=== PATIENT | female | born 1935 | race Two or more races ===

== ENCOUNTER 2022-06-09 04:55 | Inpatient (IN) | payer OTHER, MEDICAID ==
[~2022-06-09] VITALS: Ht 165.1 cm; Wt 77.0 kg
[2022-06-09 07:00] LABS: Urine Bacteria NONE SEEN /hpf (None Seen); Urine Blood Negative /uL (Negative); Urine Specific Gravity 1.005 (1.001-1.035); Urine WBC <1 /hpf (0 - 5)
[2022-06-09 07:18] LABS: Basophils # (auto) 0.1 10 ^3/uL (0-0.2); Basophils % (auto) 0.3 % (0.0-2.0); Eosinophils # (auto) 0.1 10 ^3/uL (0-0.8); Eosinophils % (auto) 0.4 % (0.0-7.0); Hematocrit 45.4 % (36.0-46.0); Hemoglobin 15.1 g/dL (12.2-16.2); Lymphocytes # (auto) 1.4 10 ^3/uL (0.4-5.4); Lymphocytes % (auto) 7.9 % (10.0-50.0); Mean Corpuscular Hemoglobin 31.1 pg (28.0-32.0); Mean Corpuscular Hgb Conc. 33.3 g/dL (32.0-36.0); Mean Corpuscular Volume 93.4 fL (80.0-100.0); Monocytes # (auto) 0.8 10 ^3/uL (0-1.3); Monocytes % (auto) 4.5 % (0.0-12.0); Neutrophils # (auto) 15.7 10 ^3/uL (1.6-8.6); Neutrophils % (auto) 86.9 % (37.0-80.0); Red Blood Cells 4.86 10^6/uL (4.0-5.20); Red Cell Distribution Width 14.2 % (11.8-14.3); White Blood Cell 18.1 10^3/uL (4.4-10.8)
[2022-06-09 07:31] LABS: INR 0.89 (0.9-1.15); Partial Thromboplastin Time 29.2 sec (24.6-33.4)
[2022-06-09 07:33] LABS: Albumin 3.6 g/dL (3.4-5.0); Calcium 9.4 mg/dL (8.5-10.1)
[2022-06-09 07:35] LABS: BUN/Creatinine Ratio 17.1
[2022-06-09] MEDS ORDERED: POTASSIUM EFFERVESENT TAB 25 MEQ PO ONE (07:45)
[2022-06-09] MEDS ORDERED: POTASSIUM CHL 20MEQ/100ML 100 ML IV ONE (07:45)
[2022-06-09 07:47] LABS: Bilirubin, Total 0.7 mg/dL (0.2-1.0); Potassium 2.9 mmol/L (3.5-5.1); Total Protein 6.7 g/dL (6.4-8.2)
[2022-06-09] MEDS ORDERED: HYDROcodone-ACET 5/325MG TAB PO ONE (08:15)
[2022-06-09] MEDS ORDERED: ONDANSETRON HCL 4 MG/2 ML VIAL IV ONE (08:15)
[2022-06-09] MEDS ORDERED: SOD CHL 0.9%/ KCL 40MEQ 1,000 ML IV ONE (09:45)
[2022-06-09] MEDS ORDERED: ACETAMINOPHEN 325 MG TAB PO PRN (12:45)
[2022-06-09] MEDS ORDERED: LISI20TA28 PO (12:58)
[2022-06-09] MEDS ORDERED: GABA300C10 PO (12:58)
[2022-06-09] MEDS ORDERED: ATOR20TA50 PO (12:58)
[2022-06-09] MEDS: MORPHINE SULFATE INJ 2 MG/ml SYRG IV PRN ×2 (14:14→18:47)
[2022-06-09 16:45] LABS: Cholesterol 171 mg/dL (< 200)
[2022-06-09 16:48] LABS: HDL Cholesterol 70 mg/dL (40-59); LDL Cholesterol 91 mg/dL (< 100); Triglycerides 88 mg/dL (< 150)
[2022-06-09] MEDS: hydrALAZINE HCL 20 MG/ML VL IV PRN (18:07)
[2022-06-09] MEDS ORDERED: TEMAZEPAM 15 MG CAP PO PRN (18:45)
[2022-06-09] MEDS ORDERED: LISINOPRIL 20 MG TAB PO ONE (21:00)
[2022-06-09] MEDS: GABAPENTIN 300 MG CAP PO SCH (23:18)
[2022-06-10] VITALS: BP 172/83
[2022-06-10] MEDS: MORPHINE SULFATE INJ 2 MG/ml SYRG IV PRN (00:47)
[2022-06-10] MEDS: hydrALAZINE HCL 20 MG/ML VL IV PRN (01:27)
[2022-06-10] MEDS: HYDROcodone-ACET 5/325MG TAB PO PRN (04:18)
[2022-06-10 05:00] VITALS: BP 168/81
[2022-06-10 06:40] LABS: Basophils # (auto) 0.1 10 ^3/uL (0-0.2); Basophils % (auto) 0.6 % (0.0-2.0); Eosinophils # (auto) 0.1 10 ^3/uL (0-0.8); Eosinophils % (auto) 0.9 % (0.0-7.0); Hematocrit 44.3 % (36.0-46.0); Hemoglobin 14.7 g/dL (12.2-16.2); Lymphocytes # (auto) 1.3 10 ^3/uL (0.4-5.4); Lymphocytes % (auto) 9.9 % (10.0-50.0); Mean Corpuscular Hgb Conc. 33.3 g/dL (32.0-36.0); Mean Corpuscular Volume 93.2 fL (80.0-100.0); Monocytes # (auto) 0.6 10 ^3/uL (0-1.3); Monocytes % (auto) 4.7 % (0.0-12.0); Neutrophils # (auto) 10.7 10 ^3/uL (1.6-8.6); Neutrophils % (auto) 83.9 % (37.0-80.0); Nucleated Red Blood Cells % 0.3 %; Red Blood Cells 4.75 10^6/uL (4.0-5.20); Red Cell Distribution Width 14.3 % (11.8-14.3); White Blood Cell 12.8 10^3/uL (4.4-10.8)
[2022-06-10 07:00] LABS: Albumin 3.3 g/dL (3.4-5.0); Calcium 8.6 mg/dL (8.5-10.1); Potassium 3.4 mmol/L (3.5-5.1)
[2022-06-10 07:04] LABS: Bilirubin, Total 1.1 mg/dL (0.2-1.0); Total Protein 6.1 g/dL (6.4-8.2)
[2022-06-10 08:00] VITALS: BP 159/79
[2022-06-10] MEDS ORDERED: VANCOMYCIN HCL 1000 MG VL ONE (08:59)
[2022-06-10] MEDS ORDERED: TRANEXAMIC ACID 20 ML ONE (09:01)
[2022-06-10] MEDS ORDERED: BUPIVACAINE 0.25% INJ 50ML VIAL ONE (09:01)
[2022-06-10] MEDS ORDERED: MORPHINE SULF PF 5 MG/10 ML VIAL ONE ×2 (09:03→09:33)
[2022-06-10] MEDS ORDERED: KETOROLAC TROMETH 30 MG/ML 1ML VIAL ONE (09:04)
[2022-06-10] MEDS ORDERED: ceFAZolin 1GM/50ML 50 ML IV ONE ×2 (09:14→09:24)
[2022-06-10] MEDS ORDERED: TETRACAINE 1% INJ 2 ML VIAL IJ ONE (09:30)
[2022-06-10] MEDS ORDERED: MIDAZOLAM HCL 2MG/2ML 2ml VIAL (1mg/ml) ONE (09:33)
[2022-06-10] MEDS ORDERED: fentaNYL CITRATE 100 MCG/2 ML VL ONE ×2 (09:49→10:38)
[2022-06-10] MEDS: LISINOPRIL 20 MG TAB PO SCH (10:00)
[2022-06-10] MEDS: PANTOPRAZOLE 40 MG/10 ML VIAL INJ IV SCH (10:00)
[2022-06-10] MEDS ORDERED: ETOMIDATE (2MG/ML) 20ML VIAL IV ONE (11:48)
[2022-06-10] MEDS ORDERED: PROPOFOL 10 MG/ML 20 ML IV ONE (11:48)
[2022-06-10] MEDS ORDERED: ROCURONIUM 10MG/ML 10ML VIAL IV ONE (11:49)
[2022-06-10] MEDS ORDERED: GLYCOPYRROLATE 0.2 MG/ML 1ML VIAL ONE (12:04)
[2022-06-10] MEDS ORDERED: NEOSTIGMINE 1 MG/ML INJ (10mg/10ML VIAL) ONE (12:04)
[2022-06-10] MEDS ORDERED: HYDROmorphone HCL 2 MG/ML VL/or syr IV PRN ×2 (12:30)
[2022-06-10] MEDS ORDERED: ONDANSETRON HCL 4 MG/2 ML VIAL IV PRN ×2 (12:30→15:30)
[2022-06-10 16:00] VITALS: BP 127/67
[2022-06-10] MEDS: ceFAZolin 1GM/50ML 50 ML IV SCH ×2 (18:55→22:36)
[2022-06-10 20:00] VITALS: BP 141/81
[2022-06-10 22:00] VITALS: BP 141/84
[2022-06-10] MEDS: LACTATED RINGER'S 1,000 ML IV SCH (22:00)
[2022-06-10] MEDS: GABAPENTIN 300 MG CAP PO SCH (22:00)
[2022-06-11] VITALS: BP 141/84
[2022-06-11 05:00] VITALS: BP 110/61
[2022-06-11] MEDS: ceFAZolin 1GM/50ML 50 ML IV SCH ×3 (05:56→22:55)
[2022-06-11 08:00] VITALS: BP 114/72
[2022-06-11] MEDS: LACTATED RINGER'S 1,000 ML IV SCH ×2 (08:00→18:00)
[2022-06-11] MEDS: ENOXAPARIN SOD 40 MG/0.4 ML SYRINGE SC SCH (09:20)
[2022-06-11] MEDS: GABAPENTIN 300 MG CAP PO SCH ×2 (09:20→22:37)
[2022-06-11] MEDS: MORPHINE SULFATE INJ 2 MG/ml SYRG IV PRN (09:22)
[2022-06-11] MEDS: ATORVASTATIN 20 MG TAB PO SCH (10:00)
[2022-06-11 10:03] LABS: Basophils # (auto) 0.1 10 ^3/uL (0-0.2); Basophils % (auto) 0.9 % (0.0-2.0); Eosinophils # (auto) 0.1 10 ^3/uL (0-0.8); Eosinophils % (auto) 0.5 % (0.0-7.0); Hematocrit 35.2 % (36.0-46.0); Hemoglobin 11.5 g/dL (12.2-16.2); Lymphocytes # (auto) 1.5 10 ^3/uL (0.4-5.4); Lymphocytes % (auto) 11.1 % (10.0-50.0); Mean Corpuscular Hemoglobin 31.1 pg (28.0-32.0); Mean Corpuscular Hgb Conc. 32.8 g/dL (32.0-36.0); Neutrophils # (auto) 11.1 10 ^3/uL (1.6-8.6); Neutrophils % (auto) 80.5 % (37.0-80.0); Red Blood Cells 3.71 10^6/uL (4.0-5.20); Red Cell Distribution Width 14.9 % (11.8-14.3); White Blood Cell 13.8 10^3/uL (4.4-10.8)
[2022-06-11 10:27] LABS: Albumin 2.3 g/dL (3.4-5.0); Magnesium 2.1 mg/dL (1.6-2.6); Potassium 3.9 mmol/L (3.5-5.1)
[2022-06-11 10:32] LABS: Bilirubin, Total 0.4 mg/dL (0.2-1.0); Total Protein 4.9 g/dL (6.4-8.2)
[2022-06-11 10:33] LABS: BUN/Creatinine Ratio 18.3
[2022-06-11 12:00] VITALS: BP 109/64
[2022-06-11 16:00] VITALS: BP 120/51
[2022-06-11 22:00] VITALS: BP 127/60
[2022-06-12] VITALS (7 sets, daily range): BP systolic 120–166; BP diastolic 57–81
[2022-06-12] MEDS: LACTATED RINGER'S 1,000 ML IV SCH ×2 (04:00→10:40)
[2022-06-12] MEDS: ceFAZolin 1GM/50ML 50 ML IV SCH ×3 (06:10→21:19)
[2022-06-12] MEDS ORDERED: LACTULOSE 20Gm/30ML SOLN PO PRN (09:15)
[2022-06-12] MEDS: GABAPENTIN 300 MG CAP PO SCH ×2 (10:38→21:19)
[2022-06-12] MEDS: PANTOPRAZOLE 40 MG/10 ML VIAL INJ IV SCH ×2 (10:38→10:53)
[2022-06-12] MEDS: HYDROcodone-ACET 5/325MG TAB PO PRN ×2 (10:39→21:19)
[2022-06-12] MEDS: LISINOPRIL 20 MG TAB PO SCH ×2 (10:39→10:53)
[2022-06-12] MEDS: ENOXAPARIN SOD 40 MG/0.4 ML SYRINGE SC SCH (10:39)
[2022-06-12] MEDS: DOCUSATE SOD 100 MG CAP PO SCH ×2 (10:39→21:19)
[2022-06-12] MEDS: POLYETHYLENE GLYCOL 17 GM PWDR PO SCH (10:40)
[2022-06-12] MEDS: ATORVASTATIN 20 MG TAB PO SCH (10:40)
[2022-06-13] VITALS: BP 140/80
[2022-06-13] MEDS: HYDROcodone-ACET 5/325MG TAB PO PRN ×2 (04:11→10:08)
[2022-06-13 05:00] VITALS: BP 136/67
[2022-06-13] MEDS: ceFAZolin 1GM/50ML 50 ML IV SCH (05:16)
[2022-06-13] MEDS: LACTATED RINGER'S 1,000 ML IV SCH ×2 (07:28)
[2022-06-13 07:30] VITALS: BP 166/81
[2022-06-13 08:00] VITALS: BP 161/75
[2022-06-13] MEDS: DOCUSATE SOD 100 MG CAP PO SCH (09:33)
[2022-06-13] MEDS: ATORVASTATIN 20 MG TAB PO SCH (09:33)
[2022-06-13] MEDS: PANTOPRAZOLE 40 MG/10 ML VIAL INJ IV SCH (09:33)
[2022-06-13] MEDS: POLYETHYLENE GLYCOL 17 GM PWDR PO SCH (09:34)
[2022-06-13] MEDS: LISINOPRIL 20 MG TAB PO SCH (09:34)
[2022-06-13] MEDS: GABAPENTIN 300 MG CAP PO SCH (09:34)
[2022-06-13] MEDS: ENOXAPARIN SOD 40 MG/0.4 ML SYRINGE SC SCH (09:34)
== END 2022-06-13 11:00 | DRG 522 ==
LOC: ER 04:55 → EDUNIT# 04:55 → EDBD 04:55 → OVERFLOW 12:47 → WEST WING 22:40
PROVIDERS: ADMIT Registered Nurse; ATTEND Internal Medicine Geriatric Medicine
PROC: 0SRS019 Replacement of Left Hip Joint, Femoral Surface with Metal Synthetic Substitute, Cemented, Open Approach (ICD-10-PCS; principal; 2022-06-10 09:40)
DX: S72.032A Displaced midcervical fracture of left femur, initial encounter for closed fracture (principal); E87.6 Hypokalemia; K59.00 Constipation, unspecified; W18.39XA Other fall on same level, initial encounter; I11.0 Hypertensive heart disease with heart failure; W01.0XXA Fall on same level from slipping, tripping and stumbling without subsequent striking against object, initial encounter; Y93.01 Activity, walking, marching and hiking; Z96.652 Presence of left artificial knee joint; I50.9 Heart failure, unspecified; R79.89 Other specified abnormal findings of blood chemistry; Z20.822 Contact with and (suspected) exposure to COVID-19; Z88.5 Allergy status to narcotic agent; Y92.098 Other place in other non-institutional residence as the place of occurrence of the external cause; Z90.49 Acquired absence of other specified parts of digestive tract; Z86.73 Personal history of transient ischemic attack (TIA), and cerebral infarction without residual deficits; Y99.8 Other external cause status
CPT/HCPCS: 36415; 71045; 72170; 73502; 74018; 80053; 80061; 81001; 83036; 83735; 83880; 84132; 84443; 84484; 85025; 85610; 85730; 87426; 93005; 93306; 93886; 93971; 96365; 96366; 96375; 97110; 97116; 97163; 97530; A4565; C9113; G0378; J0690; J1885; J2250; J2405; J2704; J3480; J3490; J7042